=== PATIENT | female | born 2000 | race Caucasian/White ===

== ENCOUNTER 2019-08-19 16:16 | Emergency (ER) | payer OTHER ==
[2019-08-19 16:36] VITALS: BP 143/90
--- NOTE | 2019-08-19 16:45 | UC ---
Complaint Female HPI - HPI Summary HPI Summary: Pt has been on Minocycline for about 2 months for acne and the past 2 days has had what she thinks is a vaginal yeast infection with vaginal itching, white discharge. Pt is sexually active with one partner. Pt stats she has similar symptoms premenstrually about 2 weeks ago but it resolved after her period. - History Of Current Complaint Chief Complaint: UCGU Stated Complaint: PERSONAL ISSUE Time Seen by Provider: 08/19/19 16:34 Hx Obtained From: Patient ?: No Onset/Duration: Gradual Onset Timing: Constant Severity Initially: Mild Severity Currently: Mild Pain Intensity: 0 Character: Burning Aggravating Factor(s): Other - Mild vaginal burning Associated Signs And Symptoms: Positive: Vaginal Bleeding/Discharge, Vaginal Discharge - Whitish vaginal discharge, genital itching - Allergies/Home Medications Allergies/Adverse Reactions: Allergies Allergy/AdvReac Type Severity Reaction Status Date / Time No Known Allergies Allergy Verified 08/19/19 16:31 Home Medications: Home Medications Clindamycin/Tretinoin [Clindamycin Phosphate/Praful 1.2-0.025 %] 1 gel TOPICAL DAILY 08/19/19 [History Confirmed 08/19/19] Minocycline HCl [Minocycline Hydrochloride] 100 mg PO BID 08/19/19 [History Confirmed 08/19/19] Multivitamin [Multivitamins] 1 cap PO DAILY 08/19/19 [History Confirmed 08/19/19 ] l-Norgest/E.estradiol-E.estrad [Levono-E Estrad 0.10-0.02-0.01] 1 each PO DAILY 08/19/19 [History Confirmed 08/19/19] PMH/Surg Hx/FS Hx/Imm Hx Previously Healthy: Yes - Surgical History Surgical History: None - Family History Known Family History: Positive: Non-Contributory - Social History Occupation: Student Lives: Dormitory/Roommates Alcohol Use: None Substance Use Type: None Smoking Status (MU): Never Smoked Tobacco Review of Systems All Other Systems Reviewed And Are Negative: Yes Genitourinary: Positive: Vaginal/Penile Burning, Vaginal/Penile Itching, Vaginal /Penile Discharge - whitish discharge Is Patient Immunocompromised?: No Physical Exam Triage Information Reviewed: Yes Appearance: Well-Appearing, No Pain Distress, Well-Nourished Vital Signs: Initial Vital Signs Temp 99.1 F 08/19/19 16:26 Pulse 75 08/19/19 16:26 Resp 16 08/19/19 16:26 BP 152/67 08/19/19 16:26 Pulse Ox 100 08/19/19 16:26 Vital Signs Reviewed: Yes Respiratory: Positive: Lungs clear, Normal breath sounds, No respiratory distress, No accessory muscle use Cardiovascular: Positive: RRR, No Murmur, Pulses Normal, Brisk Capillary Refill Abdomen Description: Positive: Nontender, No Organomegaly, Soft. Negative: CVA Tenderness (R), CVA Tenderness (L), Distended, Guarding, Hepatomegaly, McBurney' s Point Tenderness, Splenomegaly Bowel Sounds: Positive: Present Musculoskeletal Exam: Normal Neurological Exam: Normal Psychological Exam: Normal Skin Exam: Normal Complaint Female Dx - Course Course Of Treatment: Because of the patient's history of being on the Minocycline, I am going to treat for a vaginal yeast infection. She is to stop the Minocycline for tonight and tomorrow and call her banana grader Wednesday to see if she should continue the Minocycline or not. - Differential Dx/Diagnosis Provider Diagnosis: Vaginal yeast infection Discharge ED - Sign-Out/Discharge Documenting (check all that apply): Patient Departure All imaging exams completed and their final reports reviewed: No Studies - Discharge Plan Condition: Good Disposition: HOME Prescriptions: Fluconazole 150 MG TAB* [Diflucan 150 MG TAB*] 150 mg PO UC ONCE 1 Days #1 tablet Patient Education Materials: Yeast Infection (ED) Referrals: No Primary Care Phys,NOPCP [Primary Care Provider] - [facility] [Outside] Additional Instructions: Stop the Minocycline until Wednesday and call your banana grader Wednesday. - Billing Disposition and Condition Condition: GOOD Disposition: Home - Attestation Statements Provider Attestation: Per institutional requirements, I have reviewed the chart, however, I was not consulted specifically or made aware of this patient by the midlevel provider. I did not personally evaluate, interact with , or disposition this patient.
== END 2019-08-19 16:58 | disposition home or self-care (01) ==
LOC: UCEAST 16:16
DX: B37.3 Candidiasis of vulva and vagina (principal)
CPT/HCPCS: 99212; G0463